=== PATIENT | male | born 1975 | race Two or more races ===

== ENCOUNTER 2021-10-19 11:07 | Emergency (ER) | payer SELFPAY ==
[~2021-10-19] VITALS: Ht 170.2 cm; Wt 82.0 kg
[2021-10-19 11:29] VITALS: BP 111/79
[2021-10-19] MEDS ORDERED: TRAM-297 PO (13:15)
== END 2021-10-19 15:20 | disposition home or self-care (01) ==
LOC: ER 11:07
DX: M25.561 Pain in right knee (principal); F12.10 Cannabis abuse, uncomplicated
CPT/HCPCS: 73700; 93971

== ENCOUNTER 2023-06-16 20:49 | Emergency (ER) | payer MEDICAID, OTHER ==
[~2023-06-16] VITALS: Ht 170.2 cm; Wt 90.9 kg
[~2023-06-16 20:49] MED LIST: TRAM-297 PO
[2023-06-16 22:35] VITALS: BP 105/67; PULSE 60; RESP 17; TEMP 98.3; O2SAT 96
== END 2023-06-16 22:43 | disposition left against medical advice (07) ==
LOC: EDBD 20:49 → ER 20:49
DX: R10.11 Right upper quadrant pain (principal); R10.12 Left upper quadrant pain; Z53.21 Procedure and treatment not carried out due to patient leaving prior to being seen by health care provider

== ENCOUNTER 2024-01-29 07:50 | Emergency (ER) | payer MEDICAID ==
[~2024-01-29] VITALS: Ht 170.2 cm; Wt 86.0 kg
[2024-01-29] MEDS: HYDROcodone-ACET 5/325MG TAB PO ONE (08:23)
[2024-01-29] MEDS: TETANUS-DIPTH-ACEL PERTUSSIS 0.5ML SYR Tdap IM ONE (08:29)
[2024-01-29] MEDS: LIDOCAINE 1% HCL (LOCAL ANESTH.) INJ 20ML MDV IJ ONE (08:33)
[2024-01-29 08:34] VITALS: BP 131/86; PULSE 77; RESP 18; TEMP 98.9; O2SAT 98
--- NOTE | 2024-01-29 08:38 | ED.PDOC ---
HPI Comments A 48 YEAR OLD MALE PRESENTS TO THE ED WITH COMPLAINT OF LACERATION OF LEFT HAND S/P DOG BITE. PATIENT STATES HE WENT TO GO CHECK HIS MAIL AND A JAPANESE TOUSSAINT DOG BIT HIS BILATERAL HANDS. PATIENT REPORTS HE SUSTAINED A LACERATION ON THE PALM OF HIS LEFT HAND AND PUNCTURE WOUNDS ON HIS RIGHT HAND. BLEEDING IS CONTROLLED AT THIS TIME. PATIENT DENIES FEVER, CHILLS, SHORTNESS OF BREATH, CHEST PAIN, ABDOMINAL PAIN, NAUSEA, VOMITING, HEADACHE, OR OTHER COMPLAINTS. NO OTHER SYMPTOMS OR MODIFYING FACTORS AT THIS TIME. PATIENT IS ALERT, ORIENTED X 4, AND HAS STEADY GAIT. Chief Complaint: Animal Bite Time Seen by MD: 08:02 Primary Care Provider: OOT Reviewed Notes: Nurses Notes, Medications, Allergies Allergies: Coded Allergies: NO KNOWN ALLERGIES (Unverified , 10/19/21) Home Meds Active Scripts Ibuprofen (Ibuprofen) 800 Mg Tab, 1 TAB PO TID, #30 TAB Prov:ELLA SAL 01/29/24 Amoxicillin & Pot Clavulanate (AUGMENTIN TABLET) 875 Mg Tb, 875 MG PO BID for 10 Days, #20 TAB Prov:ELLA SAL 01/29/24 Tramadol Hcl (Ultram) 50 Mg Tab, 1 TAB PO Q6HR, #30 TAB Prov:RONDA BRYANT MD 10/19/21 Information Source: Patient Mode of Arrival: Ambulatory Severity: Moderate Severity of Laceration: Controlled Bleeding Complexity: Simple Timing: Hours Prehospital treatment: None Laceration Location: Hand (LEFT HAND) Mechanism: Dog Last Tetanus: > 5 Years Laceration Length (cm): 4 Skin Type: Linear Depth of Injury: SQ Tendon Injury: 0% Capillary Refill: < 3 seconds Tender: Moderate Discharge: None Erythema: None Associated Signs and Symptoms: None Past Medical History PAST MEDICAL HISTORY: Denies Surgical History: Denies all surgeries Family History Family History: Reviewed,noncontributory to illness Social History Smoker: Non-Smoker Alcohol: Denies ETOH Use Drugs: Marijuana Lives In: Home Constitutional: denies: chills, diaphoresis, fatigue, fever, malaise, sweats, weakness, others EENTM: denies: blurred vision, double vision, ear bleeding, ear discharge, ear drainage, ear pain, ear ringing, eye pain, eye redness, hearing loss, mouth pain, mouth swelling, nasal discharge, nose bleeding, nose congestion, nose pain, photophobia, tearing, throat pain, throat swelling, voice changes, others Respiratory: denies: cough, hemoptysis, orthopnea, SOB at rest, shortness of breath, SOB with excertion, stridor, wheezing, others Cardiovascular: denies: chest pain, dizzy spells, diaphoresis, Dyspnea on exertion, edema, irregular heart beat, left arm pain, lightheadedness, palpitations, PND, syncope, others Gastrointestinal: denies: abdomen distended, abdominal pain, blood streaked bowels, constipated, diarrhea, dysphagia, difficulty swallowing, hematemesis, melena, nausea, poor appetite, poor fluid intake, rectal bleeding, rectal pain, vomiting, others Genitourinary: denies: burning, dysuria, flank pain, frequency, hematuria, incontinence, penile discharge, penile sore, pain, testicle pain, testicle swelling, urgency, others Neurological: denies: dizziness, fainting, headache, left sided numbness, left sided weakness, numbness, paresthesia, pre-existing deficit, right sided numbness, right sided weakness, seizure, speech problems, tingling, tremors, weakness, others Musculoskeletal: denies: back pain, gout, joint pain, joint swelling, muscle pain, muscle stiffness, neck pain, others Integumetry: reports: laceration (LACERATION OF LEFT HAND), wounds (PUNCTURE WOUNDS OF RIGHT HAND); denies: bruises, change in color, change in hair/nails, dryness, lesions, lumps, rash, others Allergic/Immunocompromised: denies: Difficulty Healing, Frequent Infections, Hives, Itching, others Hematologic/Lymphatic: denies: anemia, blood clots, easy bleeding, easy bruising, swollen glands, others Endocrine: denies: excessive hunger, excessive sweating, excessive thirst, excessive urination, flushing, intolerance to cold, intolerance to heat, unexplained weight gain, unexplained weight loss, others Psychiatric: denies: anxiety, bipolar disorder, depression, hopeless, panic disorder, schizophrenia, sleepless, suicidal, others All Other Systems: Reviewed and Negative Physical Exam General Appearance: No Apparent Distress, Normal HEENT: Normal ENT Inspection, PERRL/EOMI, Pharynx Normal, TMs Normal Neck: Full Range of Motion, Non-Tender, Normal, Normal Inspection Respiratory: Chest Non-Tender, Lungs Clear, No Accessory Muscle Use, No Respiratory Distress, Normal Breath Sounds Cardiovascular: No Edema, No JVD, No Murmur, No Gallop, Normal Peripheral Pulses, Regular Rate/Rhythm Breast Exam: Deferred Gastrointestinal: No Organomegaly, Non Tender, No Pulsatile Mass, Normal Bowel Sounds, Soft Genitalia: Deferred Pelvic: Deferred Rectal: Deferred Extremities: No calf tenderness, Normal capillary refill, Normal range of motion, No pedal edema, Swelling (AND BONY TENDERNESS ON RIGHT DORSAL HAND. ), Tender (BONY TENDERNESS AND SWELLING ON RIGHT DORSAL HAND WITH A TINY PUNCTURE WOUND, NO BLEEDING AND DEFORMITY. ), Other (TENDERNESS AND LACERATION ON LEFT PALM, NO BONY TENDERNESS, SWELLING AND DEFORMITY. 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 ), Normal Color, Warm, Wounds (A TINY PUNCTURE WOUND ON RIGHT DORSAL HAND, NO BLEEDING AND FB. ) Peripheral Pulses: 2+ carotid (R), 2+ carotid (L), 2+ Radial (R), 2+ Radial (L) Lymphatic: No Adenopathy Was a procedure done? Was a procedure done?: Yes Sedation Sedation?: No Laceration Repair : Location PALM OF LEFT HAND Length 4CM Anesthetic: Lidocaine, Without epi Laceration Repair Prep: Saline, Betadine, by Irrigation Laceration Repair Wound Comple: epidermis/dermis repair Laceration Repair: Number of sutures (8), SQ, Size (4-0 ETHILON), Nylon, Simple, Gauze Informed consent obtained: No Risks, benefits, and alternati: Yes Images 1 - Differential diagnosis Generic Laceration: Abrasion/Contusion, Laceration, Avulsion Differential Diagnosis: N/A X-Ray, Labs, Meds, VS Vital Signs Date Time Temp Pulse Resp B/P (MAP) Pulse Ox O2 Delivery O2 Flow Rate FiO2 01/29/24 08:34 77 18 98 Room Air 01/29/24 08:34 98.9 77 18 131/86 (101) 98 98.9 01/29/24 07:55 98.9 77 18 131/86 (101) 98 Current Medications Medications (Trade) Dose Ordered Sig/Viridiana Route Start Time Stop Time Status Last Admin Acetaminophen/ Hydrocodone Bitart (Correll 5/325MG Tab) 1 tab ONCE ONCE PO 01/29/24 08:30 01/29/24 08:31 DC 01/29/24 08:23 Diphtheria/ Tetanus/Acell Pertussis (Boostrix T-Dap) 0.5 ml ONCE ONCE IM 01/29/24 08:30 01/29/24 08:31 DC 01/29/24 08:29 Lidocaine HCl (Xylocaine 1%) 10 ml ONCE ONCE IJ 01/29/24 08:30 01/29/24 08:31 DC 01/29/24 08:33 Ceftriaxone Sodium (Rocephin) 1,000 mg ONCE ONCE IM 01/29/24 09:00 01/29/24 09:01 DC 01/29/24 09:00 X-Ray, Labs, Meds, VS Comment TREATMENT: TETANUS 0.5 ML IM, NORCO 5/325MG PO, ROCEPHIN 1 G IM, PATIENT'S PUNCTURE WOUND ON HIS RIGHT HAND WAS CLEANED USING NORMAL SALINE AND ALCOHOL SWABS. BLACK BRACE WAS APPLIED TO PATIENT'S RIGHT HAND. XR HAND RT: [INTERPRETED BY ME. NONDISPLACED COMMINUTED 4TH METACARPAL FRACTURE VISUALIZED. NO DISLOCATION SEEN. PENDING RADIOLOGY REVIEW.] XR HAND LT: [INTERPRETED BY ME. NO ACUTE FINDINGS. NO FRACTURES OR DISLOCATION. PENDING RADIOLOGIST REPORT.] Images Reviewed?: Images reviewed and evaluated by me Time of 1ST Reevaluation: 09:30 Reevaluation 1ST: Improved Patient Education/Counseling: Diagnosis, Treatment, Need For Follow Up Family Education/Counseling: Diagnosis, Treatment, Need For Follow Up Medical Screening: No EMC Exist At This Time Departure 1 Departure Time of Disposition: 09:30 Impression: Primary Impression: Laceration of left palm without complication Qualified Codes: S61.412A - Laceration without foreign body of left hand, initial encounter Additional Impressions: Puncture wound of right hand without complication Qualified Codes: S61.431A - Puncture wound without foreign body of right hand, initial encounter Fracture of fourth metacarpal bone of right hand Qualified Codes: S62.354A - Nondisplaced fracture of shaft of fourth metacarpal bone, right hand, initial encounter for closed fracture Dog bite Qualified Codes: W54.0XXA - Bitten by dog, initial encounter Disposition: HOME / SELF CARE / HOMELESS Condition: Stable Additional Instructions: FOLLOW-UP WITH PCP IN 1 TO 2 DAYS FOR REFERRAL TO [facility] PER[facility]. TAKE MEDICATIONS PRESCRIBED. RETURN TO ED FOR ANY NEW OR WORSENING SYMPTOMS. e-Prescriptions Ibuprofen (Ibuprofen) 800 Mg Tab 1 TAB PO TID, #30 TAB Prov: ELLA SAL 01/29/24 Amoxicillin & Pot Clavulanate (AUGMENTIN TABLET) 875 Mg Tb 875 MG PO BID for 10 Days, #20 TAB Prov: ELLA SAL 01/29/24 Discharged With: Self, Spouse Critical Care Note Critical Care Time?: No Stability Stability form required: No I personally scribed for ELLA SAL ([email or web address]) on 01/29/24 at 08:38. Electronically submitted by Gaurav Meyer ([employer]). I personally scribed for ELLA SAL ([email or web address]) on 01/29/24 at 08:44. Electronically submitted by Gaurav Meyer ([employer]). I personally scribed for ELLA SAL ([email or web address]) on 01/29/24 at 08:45. Electronically submitted by Gaurav Meyer ([employer]). I personally scribed for ELLA SAL ([email or web address]) on 01/29/24 at 08:56. Electronically submitted by Gaurav Meyer ([employer]). I personally scribed for ELLA SAL ([email or web address]) on 01/29/24 at 09:14. Electronically submitted by Gaurav Meyer ([employer]). ELLA SAL Jan 29, 2024 08:38
[2024-01-29] MEDS: cefTRIAXone SOD 1,000 MG VL IM ONE (09:00)
--- NOTE | 2024-01-29 09:18 | DVH ---
CLINICAL INDICATION: DOG BITE TECHNIQUE: 3 views of the right hand XY R HAND 3 VIEW XRAY Comparison: None FINDINGS/IMPRESSION: Comminuted and minimally displaced acute traumatic fracture of the 4th metacarpal shaft. Soft tissues are unremarkable.
[2024-01-29] MEDS ORDERED: AUG875T PO (09:19)
[2024-01-29] MEDS ORDERED: IBUP-1456 PO (09:19)
--- NOTE | 2024-01-29 09:33 | DVH ---
CLINICAL INDICATION: DOG BITE TECHNIQUE: XY L HAND 2V XRAY Comparison: XY R HAND 3 VIEW XRAY on DOS: 01/29/24 FINDINGS/IMPRESSION: : There is no evidence of acute fracture or dislocation. Chronic fracture of the distal tuft of the 2nd digit. No appreciable radiopaque foreign body.
== END 2024-01-29 09:22 | disposition home or self-care (01) ==
LOC: ER 07:50
DX: S62.324A Displaced fracture of shaft of fourth metacarpal bone, right hand, initial encounter for closed fracture (principal); S61.412A Laceration without foreign body of left hand, initial encounter; F12.90 Cannabis use, unspecified, uncomplicated; Z79.899 Other long term (current) drug therapy; Z79.1 Long term (current) use of non-steroidal anti-inflammatories (NSAID); W54.0XXA Bitten by dog, initial encounter; Y93.89 Activity, other specified; Y92.89 Other specified places as the place of occurrence of the external cause; Y99.8 Other external cause status
CPT/HCPCS: 12002; 29125; 73120; 73130; 90471; 90715; 96372; 99284; J0696; J2003

== ENCOUNTER 2024-02-01 11:40 | Emergency (ER) | payer MEDICAID ==
[~2024-02-01] VITALS: Ht 170.2 cm; Wt 97.2 kg
[~2024-02-01 11:40] MED LIST changes: +AUG875T PO; +IBUP-1456 PO
--- NOTE | 2024-02-01 13:10 | ED.PDOC ---
History of Present Illness HPI Comments 48-year-old male presents with a chief complaint of right hand pain and right hand edema. Patient reports that on Wednesday he was breaking up a dog fight and broke his hand in the process. Patient reports that he was seen here at [facility] after the dog fight and had x-rays and stitches placed. Patient is reporting that he has not followed up with orthopedics because he doesn't have a primary care doctor. No other symptoms or modifying factors present at this time. Chief Complaint: Wound Check Time Seen by MD: 12:55 Primary Care Provider: NONE Reviewed Notes: Medications, Allergies Allergies: Coded Allergies: NO KNOWN ALLERGIES (Unverified , 10/19/21) Home Meds Active Scripts Ibuprofen (Ibuprofen) 800 Mg Tab, 1 TAB PO TID, #30 TAB Prov:ELLA SAL 01/29/24 Amoxicillin & Pot Clavulanate (AUGMENTIN TABLET) 875 Mg Tb, 875 MG PO BID for 10 Days, #20 TAB Prov:ELLA SAL 01/29/24 Tramadol Hcl (Ultram) 50 Mg Tab, 1 TAB PO Q6HR, #30 TAB Prov:RONDA BRYANT MD 10/19/21 Information Source: Patient Mode of Arrival: Ambulatory Severity: Moderate Timing: Days Duration: Since onset Prehospital treatment: None Past Medical History PAST MEDICAL HISTORY: Denies Surgical History: Denies all surgeries Family History Family History: Reviewed,noncontributory to illness Social History Smoker: Non-Smoker Alcohol: Denies ETOH Use Drugs: Marijuana Lives In: Home Constitutional: denies: chills, diaphoresis, fatigue, fever, malaise, sweats, weakness, others EENTM: denies: blurred vision, double vision, ear bleeding, ear discharge, ear drainage, ear pain, ear ringing, eye pain, eye redness, hearing loss, mouth pain, mouth swelling, nasal discharge, nose bleeding, nose congestion, nose pain, photophobia, tearing, throat pain, throat swelling, voice changes, others Respiratory: denies: cough, hemoptysis, orthopnea, SOB at rest, shortness of breath, SOB with excertion, stridor, wheezing, others Cardiovascular: reports: edema (RIGHT HAND); denies: chest pain, dizzy spells, diaphoresis, Dyspnea on exertion, irregular heart beat, left arm pain, lightheadedness, palpitations, PND, syncope, others Gastrointestinal: denies: abdomen distended, abdominal pain, blood streaked bowels, constipated, diarrhea, dysphagia, difficulty swallowing, hematemesis, melena, nausea, poor appetite, poor fluid intake, rectal bleeding, rectal pain, vomiting, others Genitourinary: denies: burning, dysuria, flank pain, frequency, hematuria, incontinence, penile discharge, penile sore, pain, testicle pain, testicle swelling, urgency, others Neurological: denies: dizziness, fainting, headache, left sided numbness, left sided weakness, numbness, paresthesia, pre-existing deficit, right sided numbness, right sided weakness, seizure, speech problems, tingling, tremors, weakness, others Musculoskeletal: reports: muscle pain (RIGHT HAND); denies: back pain, gout, joint pain, joint swelling, muscle stiffness, neck pain, others Integumetry: denies: bruises, change in color, change in hair/nails, dryness, laceration, lesions, lumps, rash, wounds, others Allergic/Immunocompromised: denies: Difficulty Healing, Frequent Infections, Hives, Itching, others Hematologic/Lymphatic: denies: anemia, blood clots, easy bleeding, easy bruising, swollen glands, others Endocrine: denies: excessive hunger, excessive sweating, excessive thirst, excessive urination, flushing, intolerance to cold, intolerance to heat, unexplained weight gain, unexplained weight loss, others Psychiatric: denies: anxiety, bipolar disorder, depression, hopeless, panic disorder, schizophrenia, sleepless, suicidal, others All Other Systems: Reviewed and Negative Physical Exam General Appearance: No Apparent Distress, Normal HEENT: Normal ENT Inspection, Pharynx Normal, TMs Normal Neck: Full Range of Motion, Non-Tender, Normal, Normal Inspection Respiratory: Chest Non-Tender, Lungs Clear, No Accessory Muscle Use, No Respiratory Distress, Normal Breath Sounds Cardiovascular: No Edema, No JVD, No Murmur, No Gallop, Normal Peripheral Pulses, Regular Rate/Rhythm Breast Exam: Deferred Gastrointestinal: No Organomegaly, Non Tender, No Pulsatile Mass, Normal Bowel Sounds, Soft Genitalia: Deferred Pelvic: Deferred Rectal: Deferred Extremities: No calf tenderness, Normal capillary refill, Normal inspection, Normal range of motion, Non-tender, No pedal edema Musculoskeletal : Apperance: Normal Neurologic: Alert, 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 Was a procedure done?: No Differential Dx Considerations may include: Fracture, compartment syndrome, cellulitis X-Ray, Labs, Meds, VS Vital Signs Date Time Temp Pulse Resp B/P (MAP) Pulse Ox O2 Delivery O2 Flow Rate FiO2 02/01/24 13:30 Room Air* 0 21 02/01/24 13:29 98.9 61 17 121/70 (87) 98 98.9 02/01/24 12:00 98.9 62 18 120/71 (87) 97 Current Medications Medications (Trade) Dose Ordered Sig/Viridiana Route Start Time Stop Time Status Last Admin Acetaminophen/ Hydrocodone Bitart (Modale 5/325MG Tab) 1 tab ONCE ONCE PO 02/01/24 13:00 02/01/24 13:01 DC 02/01/24 13:27 Time of 1ST Reevaluation: 13:25 Reevaluation 1ST: Unchanged Patient Education/Counseling: Diagnosis, Treatment, Prognosis Family Education/Counseling: No Family Present Departure 1 Departure Time of Disposition: 15:02 (Patient has a fracture right hand he has had follow up his removable splint. We will place patient in ulnar gutter splint. We will refer patient to orthopedics and have him follow up as an outpatient) Impression: Primary Impression: Fracture of fourth metacarpal bone of right hand Qualified Codes: S62.334D - Displaced fracture of neck of fourth metacarpal bone, right hand, subsequent encounter for fracture with routine healing Disposition: 01 HOME / SELF CARE / HOMELESS Condition: Stable Referrals: LOUIS WILLIMASON MD Additional Instructions: You still have a 4th metacarpal fracture. You were placed in a splint in the ER. You were referred to orthopedics. Please call for an appointment this week. For pain you can take the followinam: Ibuprofen 400mg with food Noon: Acetaminophen 1000mg 4pm: Ibuprofen 400mg with food 8pm: Acetaminophen 1000mg If your symptoms worsen or you have any other concerns then please return to the ER. Discharged With: Self Critical Care Note Critical Care Time?: No Stability Stability form required: No I personally scribed for ELISHA GALAN MD ([email or web address]) on 02/01/24 at 13:10. Electronically submitted by Bryson Qureshi ([email or web address]). ELISHA GALAN MD Feb 01, 2024 13:10
[2024-02-01] MEDS: HYDROcodone-ACET 5/325MG TAB PO ONE (13:27)
[2024-02-01 13:29] VITALS: BP 121/70; PULSE 61; RESP 17; TEMP 98.9; O2SAT 98
--- NOTE | 2024-02-01 13:30 | DVH ---
CLINICAL INDICATION: right hand pain with recent fracture TECHNIQUE: 4 radiographic views of the right hand were obtained. Comparison: XY L HAND 2V XRAY on DOS: 01/29/24, XY R HAND 3 VIEW XRAY on DOS: 01/29/24 FINDINGS/IMPRESSION: There is acute comminuted mildly displaced fracture of the distal meta diaphysis of the 4th digit wit h associated soft tissue edema. Questionable fracture of the distal radius on the frontal view with no corresponding abnormality on t he oblique and lateral views. Recommend correlation with point tenderness.
== END 2024-02-01 16:20 | disposition home or self-care (01) ==
LOC: ER 11:40
DX: S62.394A Other fracture of fourth metacarpal bone, right hand, initial encounter for closed fracture (principal); F12.90 Cannabis use, unspecified, uncomplicated; Z79.899 Other long term (current) drug therapy; X58.XXXA Exposure to other specified factors, initial encounter; Y93.89 Activity, other specified; Y92.89 Other specified places as the place of occurrence of the external cause; Y99.8 Other external cause status
CPT/HCPCS: 29125; 73130